=== PATIENT | female | born 1960 | race Caucasian/White ===

== ENCOUNTER 2020-10-14 23:54 | Emergency (ER) | payer BC, OTHER ==
[2020-10-15 02:25] VITALS: BP 105/71; PULSE 85
[2020-10-15] MEDS ORDERED: Ketorolac 60 MG/2 ML SDV IM ONE (02:27)
--- NOTE | 2020-10-15 15:42 | CR ---
DATE OF SERVICE: 10/15/2020 CLINICAL DATA: Pain since injury 1 week ago. RIGHT FOOT: No priors. 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 There is a plantar calcaneal spur. No acute fracture or dislocation. No focal lytic or blastic bone lesions. [id number] [facility]
--- NOTE | 2020-10-16 14:39 | ER ---
HISTORY OF PRESENT ILLNESS: A 60-year-old lady here with complaints of right foot pain, it has been ongoing for about a week. She tells me that she fell [place], she fell [place] and she injured her left foot initially. She did notice some discomfort with the right foot, but did not think too much of it. She came in and was evaluated and is currently wearing a walking boot on the left foot, but she states now that the right foot is getting more painful. She is pointing to the midfoot area. The patient has not had any additional falls or injuries. 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 She is using ibuprofen and she does have a pain medicine that she takes with a pain contract. The patient has not noticed any additional swelling or discoloration of the right foot. OBJECTIVE: GENERAL APPEARANCE: The patient is awake and alert. No obvious distress. VITAL SIGNS: Reviewed as listed. EXTREMITIES: Examining the right foot reveals skin is intact. There is a small mostly healed superficial abrasion on the lateral side of the midfoot that is about a centimeter in size. The midfoot is tender throughout both anterior, medial, and lateral sides. The ankle and heel appear to be okay with palpation and the toes are nontender. LAB AND X-RAY STUDIES: X-ray of the right foot was obtained. There is a lot of arthritis involving the midfoot area, which I think is part of what is causing the patient's pain coupled with her recent injury. She has a large heel spur as well but this is not in the area where she is having pain. DIAGNOSIS: Right foot pain with this significant arthritic changes secondary to minor trauma. TREATMENT PLAN: I advised the patient that she should be taking it easy for a few days. 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 I gave her a slip to be off the rest of the week. She was given Toradol 60 mg IM in the ER and I will give her a script for some Toradol tablets. She is to stop using ibuprofen until she is done with the Toradol. She is to keep her weight off her feet as much as possible the next 2 or 3 days and then start increasing activity as tolerated. Followup should be with her primary care provider in the clinic as needed. CRS/MODL /[id number]
== END 2020-10-15 01:04 | disposition home or self-care (01) ==
LOC: LB.ED 23:54
DX: M19.171 Post-traumatic osteoarthritis, right ankle and foot (principal)
CPT/HCPCS: 73630-RT; 96372; 99283; J1885

== ENCOUNTER 2022-04-20 00:45 | Emergency (ER) | payer BC ==
[2022-04-20] MEDS ORDERED: Ciprofloxacin 0.3% Ophth Soln 2.5 ML Bottle ONE (01:00)
[2022-04-20 01:46] VITALS: BP 133/91; PULSE 92
== END 2022-04-20 01:10 | disposition home or self-care (01) ==
LOC: LB.ED 00:45 → SUPCPDRO 00:45 → LB.ED 01:10
DX: H10.32 Unspecified acute conjunctivitis, left eye (principal); I10 Essential (primary) hypertension; Z88.5 Allergy status to narcotic agent; Z88.6 Allergy status to analgesic agent; Z79.899 Other long term (current) drug therapy
CPT/HCPCS: 99281; 99283; A9270

== ENCOUNTER 2023-03-08 23:18 | Emergency (ER) | payer OTHER ==
[2023-03-09] MEDS ORDERED: Ketorolac 30 MG/ML SDV IM ONE (00:36)
[2023-03-09] MEDS ORDERED: Ketorolac 30 MG/ML SDV ONE (00:45)
[2023-03-09] MEDS ORDERED: HYDROmorphone 2 MG/ML Syringe IM ONE (00:49)
[2023-03-09] MEDS ORDERED: HYDROmorphone 2 MG/ML Syringe ONE (00:58)
[2023-03-09 05:12] VITALS: BP 118/69; PULSE 88
== END 2023-03-09 02:00 | disposition home or self-care (01) ==
LOC: LB.ED 23:18
DX: S92.001A Unspecified fracture of right calcaneus, initial encounter for closed fracture (principal); X50.9XXA Other and unspecified overexertion or strenuous movements or postures, initial encounter
CPT/HCPCS: 73610-RT; 96372; 99283; J1170

== ENCOUNTER 2023-06-27 15:56 | Emergency (ER) | payer OTHER ==
[2023-06-27] MEDS ORDERED: Phenazopyridine 100 MG Tab PO ONE (16:34)
[2023-06-27 16:56] LABS: APPEARANCE,URINE CLEAR (CLEAR); BILIRUBIN,URINE NEGATIVE (NEGATIVE); COLOR,URINE YELLOW; GLUCOSE,URINE NEGATIVE (NEGATIVE); KETONES,URINE NEGATIVE (NEGATIVE); LEUKOCYTE ESTERASE,URINE TRACE (NEGATIVE); NITRITE,URINE NEGATIVE (NEGATIVE); OCCULT BLOOD,URINE NEGATIVE (NEGATIVE); PROTEIN,URINE NEGATIVE (NEGATIVE)
[2023-06-27 16:59] LABS: RBC,URINE 0-5 /HPF
[2023-06-27 17:00] LABS: EPITHELIAL CELLS,URINE FEW /HPF
[2023-06-27] MEDS ORDERED: Ciprofloxacin 500 MG Tab ONE (17:30)
[2023-06-27] MEDS ORDERED: Phenazopyridine 100 MG Tab ONE (17:30)
[2023-06-27 18:18] VITALS: BP 158/89; PULSE 88
== END 2023-06-27 18:04 | disposition home or self-care (01) ==
LOC: LB.ED 15:56
DX: R30.0 Dysuria (principal); I10 Essential (primary) hypertension; E11.9 Type 2 diabetes mellitus without complications; Z90.710 Acquired absence of both cervix and uterus; Z79.899 Other long term (current) drug therapy; Z88.5 Allergy status to narcotic agent
CPT/HCPCS: 81001; 99283; A9270-GY

== ENCOUNTER 2023-10-11 16:26 | Inpatient (IN) | payer OTHER ==
[2023-10-11 17:14] LABS: HEMATOCRIT 27.5 % (37.0-47.0); HEMOGLOBIN 9.2 g/dL (11.5-16.5); MEAN CORPUSCULAR HEMOGLOBIN 36.4 pg (27.0-32.0); MEAN CORPUSCULAR HGB CONC 33.5 g/dL (31.0-35.0); MEAN CORPUSCULAR VOLUME 109 fL (76-96); PLATELET COUNT,PLT 238 K/uL (150-500); RED BLOOD CELL COUNT 2.53 M/uL (3.80-5.80); RED CELL DISTRIBUTION WIDTH 20.4 % (11.0-16.0)
[2023-10-11 17:31] LABS: INR 1.4 (1.0-3.5); PTT,PARTIAL THROMBOPLSTIN TIME 30.3 SECONDS (24.4-33.2)
[2023-10-11 17:34] LABS: A/G RATIO 0.3 (0.8-2.0); ALBUMIN 1.4 g/dL (3.4-5.0); ANION GAP 13.1 mmol/L (5.0-15.0); BUN/CREATININE RATIO 5.7 (6-25); CALCIUM 7.7 mg/dL (8.5-10.1); CARBON DIOXIDE,CO2 26.2 mmol/L (21.0-32.0); CREATININE 1.75 mg/dL (0.55-1.02); EST CRCL DRUG DOSING (CG) 27.93 mL/min; POTASSIUM,K 4.3 mmol/L (3.5-5.1); PROTEIN TOTAL,TP 6.3 g/dL (6.4-8.2)
[2023-10-11 17:37] LABS: PROTHROMBIN TIME 14.7 sec (9.0-11.5)
[2023-10-11 17:46] LABS: ANISOCYTOSIS OCCASIONAL
[2023-10-11 17:47] LABS: POIKILOCYTOSIS OCCASIONAL
[2023-10-11 17:49] LABS: GIANT PLATELETS OCCASIONAL; PLATELET COUNT ESTIMATE ADEQUATE
[2023-10-11] MEDS: Acetaminophen/oxyCODONE 325-5 MG Tab PO SCH (22:03)
[2023-10-11] MEDS: Acetaminophen/oxyCODONE 325-5 MG Tab ONE (23:20)
[2023-10-11] MEDS: cefTRIAXone 1 GM Vial IM ONE (23:20)
[2023-10-11] MEDS: cefTRIAXone 1 GM Vial ONE (23:21)
[2023-10-11] MEDS: cefTRIAXone 1 GM in Sodium Chloride 0.9% 50 ML IV ONE (23:21)
[2023-10-12] MEDS: Acetaminophen 325 MG Tab PO PRN (04:07)
[2023-10-12] MEDS ORDERED: Non-Formulary Medication 1 Each (L.Acidoph,Paracasei, B.Lactis [Probiotic] 1 EACH Capsule) PO SCH (08:00)
[2023-10-12 08:43] LABS: BASOPHILS ABSOLUTE AUTO 0.02 K/uL (0.02-0.10); BASOPHILS PERCENT AUTO 0.3 % (0.0-0.5); EOSINOPHILS ABSOLUTE AUTO 0.05 K/uL (0.04-0.40); EOSINOPHILS PERCENT AUTO 0.7 % (1.0-5.0); HEMATOCRIT 26.9 % (37.0-47.0); HEMOGLOBIN 8.9 g/dL (11.5-16.5); LYMPHOCYTES ABSOLUTE AUTO 2.53 K/uL (1.50-4.00); LYMPHOCYTES PERCENT AUTO 33.2 % (20.0-40.0); MEAN CORPUSCULAR HEMOGLOBIN 35.9 pg (27.0-32.0); MEAN CORPUSCULAR HGB CONC 33.1 g/dL (31.0-35.0); MEAN CORPUSCULAR VOLUME 109 fL (76-96); MONOCYTES ABSOLUTE AUTO 0.99 K/uL (0.20-0.80); NEUTROPHILS ABSOLUTE AUTO 4.03 K/uL (2.00-7.50); NEUTROPHILS PERCENT AUTO 52.8 % (45.0-70.0); PLATELET COUNT,PLT 228 K/uL (150-500); RED BLOOD CELL COUNT 2.48 M/uL (3.80-5.80); RED CELL DISTRIBUTION WIDTH 20.2 % (11.0-16.0); WHITE BLOOD CELL COUNT,WBC 7.6 K/uL (4.0-11.0)
[2023-10-12 09:04] LABS: A/G RATIO 0.3 (0.8-2.0); ALBUMIN 1.3 g/dL (3.4-5.0); ANION GAP 11.2 mmol/L (5.0-15.0); BILIRUBIN TOTAL 2.3 mg/dL (0.0-1.0); BUN/CREATININE RATIO 6.7 (6-25); CALCIUM 7.6 mg/dL (8.5-10.1); CARBON DIOXIDE,CO2 26.6 mmol/L (21.0-32.0); CREATININE 1.49 mg/dL (0.55-1.02); EST CRCL DRUG DOSING (CG) 32.8 mL/min; POTASSIUM,K 3.8 mmol/L (3.5-5.1)
[2023-10-12] MEDS: Sodium Chloride 0.9% 1,000 ML IV ONE (09:34)
[2023-10-12] MEDS: Enoxaparin 30 MG/0.3 ML Syringe SUBCUT SCH (09:34)
[2023-10-12] MEDS: Cyanocobalamin (Vitamin B12) 1,000 MCG Tab PO SCH (09:35)
[2023-10-12] MEDS: Cholecalciferol (Vitamin D3) 25 MCG Tab PO SCH (09:36)
[2023-10-12] MEDS: Lactobacillus Acidophilus/Lactobacillus Sporogenes (Probiotic) Tab PO SCH (09:36)
[2023-10-12] MEDS: DULoxetine 60 MG Cap PO SCH (09:36)
[2023-10-12] MEDS: Metoclopramide 10 MG Tab PO PRN (09:40)
[2023-10-12 10:17] LABS: APPEARANCE,URINE CLOUDY (CLEAR); BILIRUBIN,URINE SMALL (NEGATIVE); COLOR,URINE YELLOW; GLUCOSE,URINE NEGATIVE (NEGATIVE); KETONES,URINE NEGATIVE (NEGATIVE); LEUKOCYTE ESTERASE,URINE TRACE (NEGATIVE); NITRITE,URINE NEGATIVE (NEGATIVE); OCCULT BLOOD,URINE TRACE-INTACT (NEGATIVE); PH,URINE 5.5 (5.0-8.0); PROTEIN,URINE NEGATIVE (NEGATIVE); UROBILINOGEN,URINE 0.2 E.U./dL (0.2-1.0)
[2023-10-12 10:27] LABS: RBC,URINE 0-5 /HPF; SQUAMOUS EPITHELIAL CELLS,UR MANY /HPF; WBC,URINE 0-5 /HPF
[2023-10-12] MEDS: methylPREDNISolone Sodium Succinate 125 MG/2 ML SDV IVPUSH ONE (10:52)
[2023-10-12] MEDS: Ondansetron 4 MG/2 ML SDV IVPUSH PRN (11:26)
[2023-10-12] MEDS: Ondansetron 4 MG/2 ML SDV ONE (11:32)
[2023-10-12] MEDS: Lactated Ringers 1,000 ML IV SCH (16:37)
[2023-10-12] MEDS: Sulfamethoxazole/Trimethoprim 800-160 MG Tab PO SCH (19:28)
[2023-10-12] MEDS: Calcium Carbonate 500 MG Tab.Chew PO PRN (19:45)
[2023-10-13] MEDS: Metoclopramide 10 MG Tab PO SCH (07:34)
[2023-10-13 08:28] LABS: BASOPHILS ABSOLUTE AUTO 0.01 K/uL (0.02-0.10); BASOPHILS PERCENT AUTO 0.1 % (0.0-0.5); HEMATOCRIT 32.2 % (37.0-47.0); HEMOGLOBIN 10.9 g/dL (11.5-16.5); LYMPHOCYTES ABSOLUTE AUTO 1.85 K/uL (1.50-4.00); LYMPHOCYTES PERCENT AUTO 23.8 % (20.0-40.0); MEAN CORPUSCULAR HEMOGLOBIN 36.2 pg (27.0-32.0); MEAN CORPUSCULAR HGB CONC 33.9 g/dL (31.0-35.0); MEAN PLATELET VOLUME 11.7 fL (6.0-10.0); MONOCYTES ABSOLUTE AUTO 0.82 K/uL (0.20-0.80); MONOCYTES PERCENT AUTO 10.6 % (3.0-10.0); NEUTROPHILS ABSOLUTE AUTO 5.08 K/uL (2.00-7.50); NEUTROPHILS PERCENT AUTO 65.5 % (45.0-70.0); PLATELET COUNT,PLT 207 K/uL (150-500); RED BLOOD CELL COUNT 3.01 M/uL (3.80-5.80); WHITE BLOOD CELL COUNT,WBC 7.8 K/uL (4.0-11.0)
[2023-10-13 08:36] VITALS: BP 131/83; PULSE 88
[2023-10-13 08:42] LABS: MEAN CORPUSCULAR VOLUME 107 fL (76-96)
[2023-10-13 08:50] LABS: A/G RATIO 0.3 (0.8-2.0); ALBUMIN 1.3 g/dL (3.4-5.0); ANION GAP 10.8 mmol/L (5.0-15.0); BILIRUBIN TOTAL 1.9 mg/dL (0.0-1.0); BUN/CREATININE RATIO 7.4 (6-25); CALCIUM 7.8 mg/dL (8.5-10.1); CARBON DIOXIDE,CO2 26.1 mmol/L (21.0-32.0); CREATININE 0.94 mg/dL (0.55-1.02); EST CRCL DRUG DOSING (CG) 51.99 mL/min; POTASSIUM,K 3.9 mmol/L (3.5-5.1); PROTEIN TOTAL,TP 6.3 g/dL (6.4-8.2)
[2023-10-15 13:01] LABS: ANCA IFA PATTERN None Detected (None Detected); ANCA IFA TITER <1:20 (<1:20); MYELOPEROXIDASE (MPO) AB,IGG 0 AU/mL (0-19); SERINE PROTEINASE 3 PR3 AB,IGG 1 AU/mL (0-19)
== END 2023-10-13 11:00 | disposition home or self-care (01) | DRG 546 ==
LOC: LB.ED 16:26 → LB.MS 18:19 → UNDOADMIN 19:30 → LB.MS 19:30
PROVIDERS: ADMIT Physician Assistant; ATTEND Physician Assistant
DX: I77.6 Arteritis, unspecified (principal); E87.20 Acidosis, unspecified; L03.115 Cellulitis of right lower limb; L03.116 Cellulitis of left lower limb; H54.7 Unspecified visual loss; I10 Essential (primary) hypertension; K52.9 Noninfective gastroenteritis and colitis, unspecified; M19.90 Unspecified osteoarthritis, unspecified site; E66.09 Other obesity due to excess calories; F32.A Depression, unspecified; E11.9 Type 2 diabetes mellitus without complications; Z98.890 Other specified postprocedural states; Z90.710 Acquired absence of both cervix and uterus; Z98.84 Bariatric surgery status; Z88.8 Allergy status to other drugs, medicaments and biological substances; Z79.899 Other long term (current) drug therapy; Z68.32 Body mass index [BMI] 32.0-32.9, adult
CPT/HCPCS: 36415; 80053; 81001; 83516; 83605; 84484; 85025; 85610; 85651; 85730; 86036; 87070; 87205; 93005; 99221; 99231; 99239; 99284; A9270-GY; J0696; J1650; J2405; J2930; J7030; J7120

== ENCOUNTER 2023-10-18 11:35 | Emergency (ER) | payer OTHER ==
[2023-10-18 12:24] LABS: HEMATOCRIT 28.6 % (37.0-47.0); HEMOGLOBIN 9.3 g/dL (11.5-16.5); MEAN CORPUSCULAR HEMOGLOBIN 36.5 pg (27.0-32.0); MEAN CORPUSCULAR HGB CONC 32.5 g/dL (31.0-35.0); MEAN CORPUSCULAR VOLUME 112 fL (76-96); MEAN PLATELET VOLUME 10.1 fL (6.0-10.0); PLATELET COUNT,PLT 322 K/uL (150-500); RED BLOOD CELL COUNT 2.55 M/uL (3.80-5.80); RED CELL DISTRIBUTION WIDTH 19.1 % (11.0-16.0); WHITE BLOOD CELL COUNT,WBC 13.1 K/uL (4.0-11.0)
[2023-10-18 12:43] LABS: A/G RATIO 0.3 (0.8-2.0); ALBUMIN 1.3 g/dL (3.4-5.0); ANION GAP 13.3 mmol/L (5.0-15.0); BILIRUBIN TOTAL 1.8 mg/dL (0.0-1.0); BUN/CREATININE RATIO 8.9 (6-25); CALCIUM 7.6 mg/dL (8.5-10.1); CARBON DIOXIDE,CO2 24.1 mmol/L (21.0-32.0); CREATININE 0.9 mg/dL (0.55-1.02); EST CRCL DRUG DOSING (CG) 59.07 mL/min; POTASSIUM,K 3.4 mmol/L (3.5-5.1); PROTEIN TOTAL,TP 6.1 g/dL (6.4-8.2)
[2023-10-18 13:03] LABS: ANISOCYTOSIS MODERATE; HYPOCHROMASIA MANY
[2023-10-18 13:04] LABS: PLATELET COUNT ESTIMATE ADEQUATE
[2023-10-18 13:54] LABS: POIKILOCYTOSIS MODERATE
[2023-10-18 13:55] LABS: STOMATOCYTES FEW; TARGET CELLS FEW
[2023-10-18 14:42] VITALS: BP 114/59; PULSE 112
[2023-10-18] MEDS ORDERED: Naloxone 2 MG/2 ML Syringe IVPUSH PRN (15:10)
[2023-10-18] MEDS: HYDROmorphone 2 MG/ML Syringe SUBCUT PRN (15:36)
[2023-10-18] MEDS ORDERED: Ondansetron 4 MG Tab.DIS PO ONE (15:45)
[2023-10-20] MEDS: HYDROmorphone 2 MG/ML Syringe ONE (10:33)
== END 2023-10-18 16:00 ==
LOC: LB.ED 11:35
DX: I77.6 Arteritis, unspecified (principal); I10 Essential (primary) hypertension; Z90.710 Acquired absence of both cervix and uterus; Z88.6 Allergy status to analgesic agent; Z79.899 Other long term (current) drug therapy
CPT/HCPCS: 36415; 80053; 85025; 85651; 86140; 96372; 99284; J1170

== ENCOUNTER 2023-11-17 22:39 | Emergency (ER) | payer OTHER ==
[2023-11-17 23:29] LABS: BASOPHILS ABSOLUTE AUTO 0.01 K/uL (0.02-0.10); BASOPHILS PERCENT AUTO 0.1 % (0.0-0.5); EOSINOPHILS ABSOLUTE AUTO 0.04 K/uL (0.04-0.40); EOSINOPHILS PERCENT AUTO 0.5 % (1.0-5.0); HEMOGLOBIN 8.5 g/dL (11.5-16.5); LYMPHOCYTES ABSOLUTE AUTO 3.89 K/uL (1.50-4.00); LYMPHOCYTES PERCENT AUTO 52.9 % (20.0-40.0); MEAN CORPUSCULAR HGB CONC 31.5 g/dL (31.0-35.0); MEAN PLATELET VOLUME 9.9 fL (6.0-10.0); MONOCYTES ABSOLUTE AUTO 0.82 K/uL (0.20-0.80); MONOCYTES PERCENT AUTO 11.2 % (3.0-10.0); NEUTROPHILS ABSOLUTE AUTO 2.59 K/uL (2.00-7.50); NEUTROPHILS PERCENT AUTO 35.3 % (45.0-70.0); PLATELET COUNT,PLT 276 K/uL (150-500); RED CELL DISTRIBUTION WIDTH 14.2 % (11.0-16.0); WHITE BLOOD CELL COUNT,WBC 7.4 K/uL (4.0-11.0)
[2023-11-17 23:35] LABS: MEAN CORPUSCULAR VOLUME 108 fL (76-96)
[2023-11-17 23:43] LABS: A/G RATIO 0.3 (0.8-2.0); ALBUMIN 1.4 g/dL (3.4-5.0); ANION GAP 12.4 mmol/L (5.0-15.0); BILIRUBIN TOTAL 0.4 mg/dL (0.0-1.0); BUN/CREATININE RATIO 13.1 (6-25); CREATININE 0.84 mg/dL (0.55-1.02); EST CRCL DRUG DOSING (CG) 58.18 mL/min; POTASSIUM,K 4.4 mmol/L (3.5-5.1); PROTEIN TOTAL,TP 6.3 g/dL (6.4-8.2)
[2023-11-18 02:25] VITALS: BP 125/91; PULSE 111
== END 2023-11-18 01:30 ==
LOC: LB.ED 22:39
DX: K63.1 Perforation of intestine (nontraumatic) (principal); I10 Essential (primary) hypertension; M19.90 Unspecified osteoarthritis, unspecified site; Z79.82 Long term (current) use of aspirin; Z88.8 Allergy status to other drugs, medicaments and biological substances; Z79.899 Other long term (current) drug therapy; Z90.710 Acquired absence of both cervix and uterus
CPT/HCPCS: 36415; 74176; 80053; 85025; 99285

== ENCOUNTER 2024-06-04 16:24 | Emergency (ER) | payer SELFPAY ==
[2024-06-04 16:58] LABS: HEMATOCRIT 25.9 % (37.0-47.0); HEMOGLOBIN 8.6 g/dL (11.5-16.5); MEAN CORPUSCULAR HEMOGLOBIN 39.6 pg (27.0-32.0); MEAN CORPUSCULAR HGB CONC 33.2 g/dL (31.0-35.0); MEAN CORPUSCULAR VOLUME 119 fL (76-96); MEAN PLATELET VOLUME 9.8 fL (6.0-10.0); PLATELET COUNT,PLT 224 K/uL (150-500); RED BLOOD CELL COUNT 2.17 M/uL (3.80-5.80); RED CELL DISTRIBUTION WIDTH 16.9 % (11.0-16.0); WHITE BLOOD CELL COUNT,WBC 8.9 K/uL (4.0-11.0)
[2024-06-04 17:17] LABS: INR 1.7 (1.0-3.5); PTT,PARTIAL THROMBOPLSTIN TIME 36.7 SECONDS (24.4-33.2)
[2024-06-04 17:20] LABS: A/G RATIO 0.2 (0.8-2.0); ANION GAP 10.5 mmol/L (5.0-15.0); BILIRUBIN TOTAL 3.9 mg/dL (0.0-1.0); BUN/CREATININE RATIO 9.5 (6-25); CALCIUM 7.9 mg/dL (8.5-10.1); CARBON DIOXIDE,CO2 29.7 mmol/L (21.0-32.0); CREATININE 2.22 mg/dL (0.55-1.02); EST CRCL DRUG DOSING (CG) 23.64 mL/min; POTASSIUM,K 3.2 mmol/L (3.5-5.1); PROTEIN TOTAL,TP 6.3 g/dL (6.4-8.2)
[2024-06-04 17:26] LABS: MAGNESIUM 1.4 mg/dL (1.8-2.4)
[2024-06-04 17:27] LABS: ANISOCYTOSIS MANY
[2024-06-04 17:28] LABS: HYPOCHROMASIA FEW; PLATELET COUNT ESTIMATE ADEQUATE; TARGET CELLS RARE
[2024-06-04 17:29] LABS: POIKILOCYTOSIS RARE
[2024-06-04 17:31] LABS: PROTHROMBIN TIME 17.3 sec (9.0-11.5)
[2024-06-04 17:35] LABS: INFLUENZA A NAA NEGATIVE (NEGATIVE); INFLUENZA B NAA NEGATIVE (NEGATIVE); RESPIRATORY SYNCYTIAL VIR NAA NEGATIVE (NEGATIVE)
[2024-06-04 17:37] LABS: CORONAVIRUS COVID-19 NAA NEGATIVE (NEGATIVE)
[2024-06-04 17:44] LABS: TROPONIN I HIGH SENSITIVITY 4.1 pg/ml (<=60.4)
[2024-06-04] MEDS: Sodium Chloride 0.9% 1,000 ML IV ONE (18:19)
[2024-06-04] MEDS: Potassium Chloride Riders 10 MEQ in Premix Bag 1 BAG IV ONE (18:33)
[2024-06-04 19:08] LABS: AMPHETAMINES SCREEN, URINE NEGATIVE (NEGATIVE); BARBITURATE SCREEN,URINE NEGATIVE (NEGATIVE); BENZODIAZEPINES SCREEN,URINE NEGATIVE (NEGATIVE); METHADONE SCREEN, URINE NEGATIVE (NEGATIVE); METHAMPHETAMINES SCREEN, URINE NEGATIVE (NEGATIVE); OXYCODONE SCREEN,URINE POSITIVE (NEGATIVE); THC SCREEN,URINE 50 NG/ML NEGATIVE (NEGATIVE)
[2024-06-04 19:09] LABS: APPEARANCE,URINE SLIGHTLY CLOUDY (CLEAR); COLOR,URINE OTHER; GLUCOSE,URINE NEGATIVE (NEGATIVE); PH,URINE 5.5 (5.0-8.0); PROTEIN,URINE 100 mg/dL (NEGATIVE)
[2024-06-04 19:10] LABS: BILIRUBIN,URINE LARGE (NEGATIVE); KETONES,URINE TRACE mg/dL (NEGATIVE); LEUKOCYTE ESTERASE,URINE TRACE (NEGATIVE); NITRITE,URINE NEGATIVE (NEGATIVE); OCCULT BLOOD,URINE TRACE-INTACT (NEGATIVE); RBC,URINE 0-5 /HPF; SQUAMOUS EPITHELIAL CELLS,UR OCCASIONAL /HPF
[2024-06-04 19:11] LABS: AMORPHOUS SEDIMENT,URINE OCCASIONAL /HPF
[2024-06-04] MEDS: Potassium Chloride Riders 50 ML ONE (19:16)
[2024-06-04 19:52] VITALS: BP 110/63; PULSE 99
== END 2024-06-04 19:39 ==
LOC: LB.ED 16:24
DX: I62.00 Nontraumatic subdural hemorrhage, unspecified (principal); I10 Essential (primary) hypertension; M19.90 Unspecified osteoarthritis, unspecified site; Z87.891 Personal history of nicotine dependence; Z90.710 Acquired absence of both cervix and uterus; Z88.5 Allergy status to narcotic agent; Z79.82 Long term (current) use of aspirin; Z79.890 Hormone replacement therapy; Z79.899 Other long term (current) drug therapy
CPT/HCPCS: 0241U; 51702; 70450; 71250; 74176; 80053; 80307; 81001; 82607; 82746; 82947; 83605; 83690; 83735; 83880; 84484; 85025; 85610; 85730; 93005; 93010; 96365; 99285; 99285-25; J3480; J7030

== ENCOUNTER 2024-07-02 10:52 | Inpatient (IN) | payer MEDICAID ==
[2024-07-02] MEDS: Melatonin 3 MG Tab PO SCH (19:43)
[2024-07-02] MEDS: Bumetanide 2 MG Tab PO SCH (19:43)
[2024-07-02] MEDS: levETIRAcetam 500 MG Tab PO SCH (19:43)
[2024-07-02] MEDS: Lactulose Soln 10 GM/15 ML 15 ML UD Cup PO SCH (19:44)
[2024-07-02] MEDS: Magnesium Oxide 400 MG Tab PO SCH (19:44)
[2024-07-02] MEDS ORDERED: RIFAXIMIN 200 MG PO SCH (20:00)
[2024-07-02] MEDS: Dronabinol 2.5 MG Cap PO SCH (20:19)
[2024-07-02] MEDS: RIFAXIMIN 200 MG PO SCH (20:26)
[2024-07-02] MEDS: Tuberculin, PPD 5 Units/0.1 ML 1 ML MDV IDERM ONE (20:35)
[2024-07-03] MEDS: Rifaximin 550 MG Tab PO SCH (05:58)
[2024-07-03] MEDS: Levothyroxine 50 MCG Tab PO SCH (07:20)
[2024-07-03] MEDS: Potassium Chloride 20 MEQ Tab.ER PO SCH (07:20)
[2024-07-03] MEDS: Thiamine 100 MG Tab PO SCH (07:20)
[2024-07-03] MEDS: Enoxaparin 40 MG/0.4 ML Syringe SUBCUT SCH (07:20)
[2024-07-03] MEDS: Folic Acid 1 MG Tab PO SCH (07:20)
[2024-07-03] MEDS: Pantoprazole 40 MG Tab.CR PO SCH (07:21)
[2024-07-03] MEDS: Spironolactone 100 MG Tab PO SCH (07:21)
[2024-07-03] MEDS: Cyanocobalamin (Vitamin B12) 1,000 MCG Tab PO SCH (07:21)
[2024-07-03] MEDS: Multivitamin Tab PO SCH (07:21)
[2024-07-03] MEDS ORDERED: Enoxaparin 30 MG/0.3 ML Syringe SUBCUT SCH (08:00)
[2024-07-03 09:33] LABS: CREATININE 1.1 mg/dL (0.55-1.02); EST CRCL DRUG DOSING (CG) 43.87 mL/min
[2024-07-03] MEDS ORDERED: Zinc Oxide 20% Oint 56.7 GM Tube TOP PRN (17:00)
[2024-07-03] MEDS: Zinc Oxide 20% Oint 56.7 GM Tube ONE (17:52)
[2024-07-03] MEDS: Melatonin 3 MG Tab PO SCH (19:42)
[2024-07-04] MEDS: Cephalexin 500 MG Cap PO SCH (14:04)
[2024-07-04] MEDS: Cephalexin 500 MG Cap ONE (19:33)
[2024-07-05] MEDS: Lactobacillus Acidophilus/Lactobacillus Sporogenes (Probiotic) Tab PO SCH (07:12)
[2024-07-06] MEDS: Rifaximin 550 MG Tab PO SCH (14:04)
[2024-07-07] MEDS: DULoxetine 60 MG Cap PO SCH (07:50)
[2024-07-07 09:52] LABS: INR 1.4 (1.0-3.5)
[2024-07-07 09:57] LABS: A/G RATIO 0.3 (0.8-2.0); ALBUMIN 1.4 g/dL (3.4-5.0); ANION GAP 5.8 mmol/L (5.0-15.0); BILIRUBIN TOTAL 0.8 mg/dL (0.0-1.0); CALCIUM 8.2 mg/dL (8.5-10.1); CARBON DIOXIDE,CO2 22.4 mmol/L (21.0-32.0); EST CRCL DRUG DOSING (CG) 48.25 mL/min; POTASSIUM,K 3.2 mmol/L (3.5-5.1); PROTEIN TOTAL,TP 6.6 g/dL (6.4-8.2); PROTHROMBIN TIME 14.1 sec (9.0-11.5)
[2024-07-07] MEDS: Potassium Chloride 20 MEQ Tab.ER PO SCH (19:45)
[2024-07-08] MEDS: Metoclopramide 5 MG Tab PO PRN (10:24)
[2024-07-10 08:17] LABS: BASOPHILS ABSOLUTE AUTO 0.02 K/uL (0.02-0.10); BASOPHILS PERCENT AUTO 0.5 % (0.0-0.5); EOSINOPHILS ABSOLUTE AUTO 0.06 K/uL (0.04-0.40); EOSINOPHILS PERCENT AUTO 1.4 % (1.0-5.0); HEMATOCRIT 26.2 % (37.0-47.0); HEMOGLOBIN 8.8 g/dL (11.5-16.5); LYMPHOCYTES ABSOLUTE AUTO 2.14 K/uL (1.50-4.00); LYMPHOCYTES PERCENT AUTO 49.5 % (20.0-40.0); MEAN CORPUSCULAR HEMOGLOBIN 33.2 pg (27.0-32.0); MEAN CORPUSCULAR HGB CONC 33.6 g/dL (31.0-35.0); MEAN CORPUSCULAR VOLUME 99 fL (76-96); MEAN PLATELET VOLUME 10.4 fL (6.0-10.0); MONOCYTES ABSOLUTE AUTO 0.41 K/uL (0.20-0.80); MONOCYTES PERCENT AUTO 9.5 % (3.0-10.0); NEUTROPHILS ABSOLUTE AUTO 1.69 K/uL (2.00-7.50); NEUTROPHILS PERCENT AUTO 39.1 % (45.0-70.0); PLATELET COUNT,PLT 223 K/uL (150-500); RED BLOOD CELL COUNT 2.65 M/uL (3.80-5.80); RED CELL DISTRIBUTION WIDTH 19.7 % (11.0-16.0); WHITE BLOOD CELL COUNT,WBC 4.3 K/uL (4.0-11.0)
[2024-07-10 08:24] LABS: INR 1.3 (1.0-3.5); PTT,PARTIAL THROMBOPLSTIN TIME 29.3 SECONDS (24.4-33.2)
[2024-07-10 08:32] LABS: PROTHROMBIN TIME 13.4 sec (9.0-11.5)
[2024-07-10] MEDS: ceFAZolin 1 GM in Sodium Chloride 0.9% 50 ML IV SCH (16:10)
[2024-07-10] MEDS: Cephalexin 500 MG Cap PO SCH (19:23)
[2024-07-12 11:17] LABS: ANION GAP 13.1 mmol/L (5.0-15.0); BUN/CREATININE RATIO 9.5 (6-25); CALCIUM 8.7 mg/dL (8.5-10.1); CARBON DIOXIDE,CO2 26.1 mmol/L (21.0-32.0); CREATININE 1.05 mg/dL (0.55-1.02); EST CRCL DRUG DOSING (CG) 45.95 mL/min; POTASSIUM,K 5.2 mmol/L (3.5-5.1)
[2024-07-15 09:45] LABS: HEMATOCRIT 30.4 % (37.0-47.0); HEMOGLOBIN 10.1 g/dL (11.5-16.5)
[2024-07-15 10:32] LABS: A/G RATIO 0.3 (0.8-2.0); ALBUMIN 1.7 g/dL (3.4-5.0); ANION GAP 13.5 mmol/L (5.0-15.0); BUN/CREATININE RATIO 10.7 (6-25); CALCIUM 8.6 mg/dL (8.5-10.1); CARBON DIOXIDE,CO2 25.1 mmol/L (21.0-32.0); CREATININE 1.21 mg/dL (0.55-1.02); EST CRCL DRUG DOSING (CG) 39.88 mL/min; POTASSIUM,K 4.6 mmol/L (3.5-5.1); PROTEIN TOTAL,TP 7.7 g/dL (6.4-8.2)
[2024-07-16] MEDS: Potassium Chloride 20 MEQ Tab.ER PO SCH (07:45)
[2024-07-16 07:50] VITALS: BP 97/65; PULSE 88
[2024-07-16] MEDS: Tuberculin, PPD 5 Units/0.1 ML 1 ML MDV IDERM ONE (11:15)
== END 2024-07-16 13:10 | disposition home or self-care (01) | DRG 949 ==
LOC: LB.MS 15:43 → UNDOADMIN 15:43
PROVIDERS: ADMIT Physician Assistant; ATTEND Family Medicine
DX: S06.5XAD Traumatic subdural hemorrhage with loss of consciousness status unknown, subsequent encounter (principal); E44.0 Moderate protein-calorie malnutrition; L03.116 Cellulitis of left lower limb; L03.115 Cellulitis of right lower limb; R53.81 Other malaise; K72.90 Hepatic failure, unspecified without coma; K21.9 Gastro-esophageal reflux disease without esophagitis; M06.9 Rheumatoid arthritis, unspecified; F41.9 Anxiety disorder, unspecified; I10 Essential (primary) hypertension; H54.7 Unspecified visual loss; K52.9 Noninfective gastroenteritis and colitis, unspecified; M19.90 Unspecified osteoarthritis, unspecified site; F32.A Depression, unspecified; E03.9 Hypothyroidism, unspecified; D64.9 Anemia, unspecified; Z66 Do not resuscitate; K76.82 Hepatic encephalopathy; Z90.49 Acquired absence of other specified parts of digestive tract; Z95.1 Presence of aortocoronary bypass graft; Z68.24 Body mass index [BMI] 24.0-24.9, adult; Z88.8 Allergy status to other drugs, medicaments and biological substances; Z79.899 Other long term (current) drug therapy; Z90.710 Acquired absence of both cervix and uterus; X58.XXXD Exposure to other specified factors, subsequent encounter
CPT/HCPCS: 36415; 80048; 80053; 82140; 82565; 85014; 85018; 85025; 85049; 85610; 85730; 86580; 86850; 86900; 86901; 97110-GO; 97110-GP; 97112-GP; 97116-GP; 97162-GP; 97166-GO; 97530-GO; 97530-GP; 97535-GO; 99306; 99307; 99308; 99309; 99315; A9270-GY; J1650

== ENCOUNTER 2024-11-07 07:57 | Day surgery (SDC) | payer MEDICAID ==
[~2024-11-07 07:57] MED LIST: Metoclopramide 10 MG/2 ML SDV IV PRN
[2024-11-07] MEDS: Sodium Chloride 0.9% 1,000 ML IV SCH (09:30)
[2024-11-07] MEDS ORDERED: Propofol 500 MG/50 ML SDV ONE (10:30)
[2024-11-07 10:53] VITALS: BP 95/68; PULSE 85
== END 2024-11-07 11:27 | disposition home or self-care (01) ==
LOC: LB.SDS 07:57
PROVIDERS: ATTEND Surgery
DX: K57.30 Diverticulosis of large intestine without perforation or abscess without bleeding (principal); I10 Essential (primary) hypertension
CPT/HCPCS: 88305; J2704; J7030

== ENCOUNTER 2025-05-12 04:40 | Inpatient (IN) | payer OTHER ==
[2025-05-12] MEDS ORDERED: Sodium Chloride 0.9% 10 ML Syringe FLUSH PRN (05:06)
[2025-05-12] MEDS: Ondansetron 4 MG/2 ML SDV IVPUSH ONE (05:09)
[2025-05-12 05:14] LABS: BASOPHILS ABSOLUTE AUTO 0.01 K/uL (0.02-0.10); BASOPHILS PERCENT AUTO 0.1 % (0.0-0.5); EOSINOPHILS ABSOLUTE AUTO 0.02 K/uL (0.04-0.40); EOSINOPHILS PERCENT AUTO 0.2 % (1.0-5.0); LYMPHOCYTES ABSOLUTE AUTO 1.86 K/uL (1.50-4.00); LYMPHOCYTES PERCENT AUTO 15.8 % (20.0-40.0); MEAN PLATELET VOLUME 10.8 fL (6.0-10.0); MONOCYTES ABSOLUTE AUTO 0.96 K/uL (0.20-0.80); MONOCYTES PERCENT AUTO 8.1 % (3.0-10.0); NEUTROPHILS ABSOLUTE AUTO 8.94 K/uL (2.00-7.50); NEUTROPHILS PERCENT AUTO 75.8 % (45.0-70.0); PLATELET COUNT,PLT 196 K/uL (150-500); RED BLOOD CELL COUNT 4.32 M/uL (3.80-5.80); RED CELL DISTRIBUTION WIDTH 14.6 % (11.0-16.0); WHITE BLOOD CELL COUNT,WBC 11.8 K/uL (4.0-11.0)
[2025-05-12 05:40] LABS: A/G RATIO 0.7 (0.8-2.0); ALANINE AMINOTRANSFERASE,ALT 28.0 U/L (12-78); ASPARTATE AMNIOTRANSFERASE,AST 38.0 U/L (15-37); BILIRUBIN TOTAL 0.8 mg/dL (0.0-1.0); BLOOD UREA NITROGEN,BUN 16.0 mg/dL (8-26); CARBON DIOXIDE,CO2 23.7 mmol/L (21.0-32.0); CHLORIDE,CL 104.0 mmol/L (98-107); CREATININE 0.89 mg/dL (0.55-1.02); EST CRCL DRUG DOSING (CG) 54.21 mL/min; ESTIMATED GFR 73.0 mL/min (>60); GLUCOSE RANDOM 209.0 mg/dL (74-100); POTASSIUM,K 3.3 mmol/L (3.5-5.1); PROTEIN TOTAL,TP 8.3 g/dL (6.4-8.2); SODIUM,NA 141.0 mmol/L (136-145)
[2025-05-12] MEDS: Magnesium Sulfate 2 GM/50 mL 2 GM in Premix Bag 1 BAG IV ONE (06:03)
[2025-05-13] MEDS: Potassium Chloride 20 MEQ Tab.ER PO SCH (07:06)
[2025-05-13] MEDS: Lactobacillus Acidophilus/Lactobacillus Sporogenes (Probiotic) Tab PO SCH (07:06)
[2025-05-13] MEDS: Cyanocobalamin (Vitamin B12) 1,000 MCG Tab PO SCH (07:06)
[2025-05-13 08:10] LABS: BASOPHILS ABSOLUTE AUTO 0.01 K/uL (0.02-0.10); BASOPHILS PERCENT AUTO 0.2 % (0.0-0.5); EOSINOPHILS ABSOLUTE AUTO 0.12 K/uL (0.04-0.40); EOSINOPHILS PERCENT AUTO 1.9 % (1.0-5.0); LYMPHOCYTES ABSOLUTE AUTO 3.04 K/uL (1.50-4.00); LYMPHOCYTES PERCENT AUTO 48.8 % (20.0-40.0); MEAN PLATELET VOLUME 10.1 fL (6.0-10.0); MONOCYTES ABSOLUTE AUTO 0.57 K/uL (0.20-0.80); MONOCYTES PERCENT AUTO 9.1 % (3.0-10.0); NEUTROPHILS ABSOLUTE AUTO 2.49 K/uL (2.00-7.50); NEUTROPHILS PERCENT AUTO 40.0 % (45.0-70.0); PLATELET COUNT,PLT 178 K/uL (150-500); RED BLOOD CELL COUNT 3.52 M/uL (3.80-5.80); RED CELL DISTRIBUTION WIDTH 14.6 % (11.0-16.0); WHITE BLOOD CELL COUNT,WBC 6.2 K/uL (4.0-11.0)
[2025-05-13 08:29] LABS: A/G RATIO 0.7 (0.8-2.0); ALANINE AMINOTRANSFERASE,ALT 25.0 U/L (12-78); ASPARTATE AMNIOTRANSFERASE,AST 30.0 U/L (15-37); BILIRUBIN TOTAL 0.8 mg/dL (0.0-1.0); BLOOD UREA NITROGEN,BUN 14.0 mg/dL (8-26); CARBON DIOXIDE,CO2 26.6 mmol/L (21.0-32.0); CHLORIDE,CL 110.0 mmol/L (98-107); CREATININE 0.67 mg/dL (0.55-1.02); EST CRCL DRUG DOSING (CG) 72.02 mL/min; ESTIMATED GFR 99.0 mL/min (>60); GLUCOSE RANDOM 96.0 mg/dL (74-100); POTASSIUM,K 3.6 mmol/L (3.5-5.1); PROTEIN TOTAL,TP 6.5 g/dL (6.4-8.2); SODIUM,NA 145.0 mmol/L (136-145)
[2025-05-14] MEDS: Ondansetron 4 MG Tab.DIS PO PRN (06:17)
[2025-05-14 08:19] LABS: BLOOD UREA NITROGEN,BUN 14.0 mg/dL (8-26); CARBON DIOXIDE,CO2 28.1 mmol/L (21.0-32.0); CHLORIDE,CL 103.0 mmol/L (98-107); CREATININE 0.71 mg/dL (0.55-1.02); EST CRCL DRUG DOSING (CG) 67.96 mL/min; ESTIMATED GFR 96.0 mL/min (>60); GLUCOSE RANDOM 87.0 mg/dL (74-100); POTASSIUM,K 3.0 mmol/L (3.5-5.1); SODIUM,NA 138.0 mmol/L (136-145)
[2025-05-14 08:40] LABS: MEAN PLATELET VOLUME 10.4 fL (6.0-10.0); PLATELET COUNT,PLT 182.0 K/uL (150-500); RED BLOOD CELL COUNT 3.51 M/uL (3.80-5.80); RED CELL DISTRIBUTION WIDTH 14.1 % (11.0-16.0); WHITE BLOOD CELL COUNT,WBC 6.1 K/uL (4.0-11.0)
[2025-05-14] MEDS: Sennosides/Docusate Sodium 50-8.6 MG Tab PO SCH (10:25)
[2025-05-15] MEDS: Magnesium Sulfat/D5W 1GM/100ML 1 GM in Premix Bag 1 BAG IV ONE (09:30)
[2025-05-16 09:40] LABS: BLOOD UREA NITROGEN,BUN 6.0 mg/dL (8-26); CARBON DIOXIDE,CO2 29.4 mmol/L (21.0-32.0); CHLORIDE,CL 104.0 mmol/L (98-107); CREATININE 0.76 mg/dL (0.55-1.02); EST CRCL DRUG DOSING (CG) 38.59 mL/min; ESTIMATED GFR 88.0 mL/min (>60); GLUCOSE RANDOM 119.0 mg/dL (74-100); PHOSPHORUS 3.8 mg/dL (2.5-4.9); POTASSIUM,K 3.4 mmol/L (3.5-5.1); SODIUM,NA 141.0 mmol/L (136-145)
[2025-05-16] MEDS: Magnesium Sulfate 2 GM/50 mL 2 GM in Premix Bag 1 BAG IV ONE (11:21)
[2025-05-16 16:07] VITALS: BP 117/74; PULSE 75
== END 2025-05-16 16:22 | disposition home or self-care (01) | DRG 390 ==
LOC: LB.ED 04:40 → LB.MS 09:42
PROVIDERS: ADMIT Nurse Practitioner Family; ATTEND Nurse Practitioner Family
PROC: 0D9670Z Drainage of Stomach with Drainage Device, Via Natural or Artificial Opening (ICD-10-PCS; principal; 2025-05-12)
DX: K56.609 Unspecified intestinal obstruction, unspecified as to partial versus complete obstruction (principal); I10 Essential (primary) hypertension; K52.9 Noninfective gastroenteritis and colitis, unspecified; M19.90 Unspecified osteoarthritis, unspecified site; F32.A Depression, unspecified; E83.42 Hypomagnesemia; D64.9 Anemia, unspecified; E87.6 Hypokalemia; Z88.6 Allergy status to analgesic agent; Z91.09 Other allergy status, other than to drugs and biological substances; Z79.899 Other long term (current) drug therapy; Z87.19 Personal history of other diseases of the digestive system; Z98.84 Bariatric surgery status; Z98.890 Other specified postprocedural states
CPT/HCPCS: 36415; 71045; 74176; 80048; 80053; 83735; 84100; 85025; 85027; 96365; 96375; 99223; 99232; 99239; 99285-25; A9270-GY; J2270; J2405; J2765; J3475; J3480; J7030; Q0162